=== PATIENT | female | born 1985 | race Caucasian/White ===

== ENCOUNTER 2017-05-15 22:24 | Emergency (ER) | payer MEDICAID ==
[2017-05-15] MEDS ORDERED: Pantoprazole 40 MG Tab.CR PO STA (22:36)
[2017-05-15] MEDS ORDERED: Meclizine 25 MG Tab PO ONE (22:36)
[2017-05-15] MEDS ORDERED: Ondansetron 8 MG Tab.DIS PO ONE (22:36)
[2017-05-16 00:04] VITALS: BP 116/79
--- NOTE | 2017-05-16 00:04 | EDM.PDOC ---
ED HPI GENERAL MEDICAL PROBLEM - General Chief Complaint: Chest Pain Stated Complaint: CHEST PAIN Time Seen by Provider: 05/15/17 22:25 Source of Information: Reports: Patient, Family History Limitations: Reports: No Limitations - History of Present Illness INITIAL COMMENTS - FREE TEXT/NARRATIVE: 32 y.o.w.f with a h/o vertigo came to the ed with her family due to acute onset of dizziness, nausea and epigastric pain after she ate. Pt had difficulty ambulating as she arrived here in the ed due to Dizziness. She had her last vertigo symptoms as a child. No other acute medical issue at [facility] time. 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 - Related Data Allergies Allergy/AdvReac Type Severity Reaction Status Date / Time No Known Allergies Allergy Verified 05/15/17 22:38 Home Meds: Home Meds Meclizine [Antivert] 25 mg PO TID PRN #20 tab.chew 05/16/17 [Rx] Ondansetron [Zofran ODT] 8 mg PO Q6H PRN #10 tab.dis 05/16/17 [Rx] Pantoprazole Sodium [Protonix] 40 mg PO DAILY #10 tab 05/16/17 [Rx] Past Medical History - Past Surgical History Female Surgical History: Reports: Section Social & Family History - Tobacco Use Smoking Status *Q: Never Smoker - Alcohol Use Days Per Week of Alcohol Use: 2 Number of Drinks Per Day: 2 Total Drinks Per Week: 4 - Recreational Drug Use Recreational Drug Use: No ED ROS GENERAL - Review of Systems Review Of Systems: See Below Constitutional: Reports: No Symptoms HEENT: Reports: Vertigo Respiratory: Reports: No Symptoms Cardiovascular: Reports: No Symptoms Endocrine: Reports: No Symptoms GI/Abdominal: Reports: Abdominal Pain (epigastric) : Reports: No Symptoms Musculoskeletal: Reports: No Symptoms Skin: Reports: No Symptoms Neurological: Reports: Dizziness Psychiatric: Reports: No Symptoms Hematologic/Lymphatic: Reports: No Symptoms Immunologic: Reports: No Symptoms ED EXAM, GENERAL - Physical Exam Exam: See Below Exam Limited By: No Limitations General Appearance: Alert, WD/WN, Mild Distress Eye Exam: Left Eye: Nystagmus (left sided ) Ears: Normal External Exam Ear Exam: Bilateral Ear: Auricle Normal Nose: Normal Inspection, Normal Mucosa Throat/Mouth: Normal Inspection Head: Atraumatic Neck: Normal Inspection Respiratory/Chest: No Respiratory Distress, Lungs Clear, Normal Breath Sounds Cardiovascular: Normal Peripheral Pulses, Regular Rate, Rhythm, No Edema Peripheral Pulses: 2+: Femoral (L), Femoral (R) GI/Abdominal: Normal Bowel Sounds, Soft, Tender (epigastric tenderness) (Female) Exam: Deferred Rectal (Female) Exam: Deferred Back Exam: Normal Inspection Extremities: Normal Inspection Neurological: Abnormal Gait (due to dizziness) Psychiatric: Normal Affect, Normal Mood Skin Exam: Warm, Dry, Intact, Normal Color, No Rash Lymphatic: No Adenopathy Course - Vital Signs Text/Narrative:: 32 y.o.w.f with a h/o vertigo came to the ed with her family due to acute onset of dizziness, nausea and epigastric pain after she ate. Pt had difficulty ambulating as she arrived here in the ed due to Dizziness. She had her last vertigo symptoms as a child. No other acute medical issue at thsi time. PE: Nystagmus to the lat left, epigastric pain, nausea, no vomiting. imaging: MRI is not available Impression: Vertigo, gastritis Tx: Antivert, Zofran and Prtonix. Pt was drinking water well. Reexam: Symptoms subsided, pt was ambulating fine before D/C, Nausea and epigastric pain subsided as well. Plan: D/C with instructions. Last Recorded V/S: Last Vital Signs Temp 36.8 C 05/16/17 00:00 Pulse 72 05/16/17 00:00 Resp 16 05/16/17 00:00 BP 116/79 05/16/17 00:00 Pulse Ox 100 05/16/17 00:00 - Orders/Labs/Meds Meds: Medications Discontinued Medications Generic Name Dose Route Start Last Admin Trade Name Baronq PRN Reason Stop Dose Admin Meclizine HCl 50 mg 05/15/17 22:36 05/15/17 22:46 Antivert PO 05/15/17 22:37 50 mg ONETIME ONE Administration Ondansetron HCl 8 mg 05/15/17 22:36 05/15/17 22:46 Zofran Odt PO 05/15/17 22:37 8 mg ONETIME ONE Administration Pantoprazole Sodium 40 mg 05/15/17 22:36 05/15/17 22:46 Protonix PO 05/15/17 22:37 40 mg ONETIME STA Administration Departure - Departure Time of Disposition: 00:00 Disposition: Home, Self-Care 01 Condition: Good Clinical Impression: Vertigo Gastritis Qualifiers: Gastritis type: unspecified gastritis Chronicity: acute Gastritis bleeding: without bleeding Qualified Code(s): K29.00 - Acute gastritis without bleeding Prescriptions: Meclizine [Antivert] 25 mg PO TID PRN #20 tab.chew PRN Reason: vertigo symptoms Ondansetron [Zofran ODT] 8 mg PO Q6H PRN #10 tab.dis PRN Reason: Nausea Pantoprazole Sodium [Protonix] 40 mg PO DAILY #10 tab Instructions: Vertigo Referrals: PCP,None [Primary Care Provider] - Forms: ED Department Discharge Additional Instructions: Please take the meds as recommended, please increase water intake, please f/u with neurology, please come back if your symptoms get worse acutely.
== END 2017-05-16 00:02 | disposition home or self-care (01) ==
LOC: FB.ED 22:24
DX: K29.00 Acute gastritis without bleeding (principal); R42 Dizziness and giddiness; Z98.890 Other specified postprocedural states
CPT/HCPCS: 99283; A9270

== ENCOUNTER 2020-01-06 00:28 | Emergency (ER) | payer MEDICAID ==
[2020-01-06 01:03] VITALS: BP 124/91; PULSE 100
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
== END 2020-01-06 01:25 | disposition home or self-care (01) ==
LOC: FB.ED 00:28
DX: F10.129 Alcohol abuse with intoxication, unspecified (principal); F41.9 Anxiety disorder, unspecified; F32.9 Major depressive disorder, single episode, unspecified; Z79.899 Other long term (current) drug therapy; Z88.2 Allergy status to sulfonamides
CPT/HCPCS: 99284

== ENCOUNTER 2020-02-24 03:41 | Emergency (ER) | payer SELFPAY ==
[2020-02-24] MEDS ORDERED: Sodium Chloride 0.9% 10 ML Syringe FLUSH PRN (03:55)
[2020-02-24] MEDS ORDERED: Sodium Chloride 0.9% 1,000 ML IV SCH (04:00)
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
[2020-02-24 04:33] LABS: ACETAMINOPHEN < 2 ug/mL (<2)
[2020-02-24 04:53] VITALS: BP 130/92; PULSE 122
[2020-02-24] MEDS: Potassium Chloride 20 MEQ Tab.ER PO SCH ×2 (06:02→07:07)
== END 2020-02-24 10:05 ==
LOC: FB.ED 03:41
DX: T42.4X2A Poisoning by benzodiazepines, intentional self-harm, initial encounter (principal); S80.812A Abrasion, left lower leg, initial encounter; S40.812A Abrasion of left upper arm, initial encounter; F10.129 Alcohol abuse with intoxication, unspecified; F41.9 Anxiety disorder, unspecified; F32.9 Major depressive disorder, single episode, unspecified; Z88.2 Allergy status to sulfonamides; Z79.899 Other long term (current) drug therapy; W26.0XXA Contact with knife, initial encounter
CPT/HCPCS: 36415; 80053; 80305-QW; 80307; 81001; 81025; 84132; 84439; 84443; 85025; 93005; 99285-25; A9270-GY

== ENCOUNTER 2020-04-24 01:53 | Emergency (ER) | payer SELFPAY ==
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
[2020-04-24] MEDS: Activated Charcoal/Sorbitol Susp 50 GM/240 ML Bottle ONE ×2 (02:04→02:17)
[2020-04-24] MEDS ORDERED: Activated Charcoal/Sorbitol Susp 50 GM/240 ML Bottle PO ONE (02:05)
[2020-04-24] MEDS ORDERED: Ondansetron 4 MG/2 ML SDV IVPUSH ONE (02:06)
[2020-04-24] MEDS ORDERED: Sodium Chloride 0.9% 10 ML Syringe FLUSH PRN (02:14)
[2020-04-24] MEDS ORDERED: Activated Charcoal/Sorbitol Susp 50 GM/240 ML Bottle ONE (02:16)
[2020-04-24] MEDS ORDERED: Sodium Chloride 0.9% 1,000 ML IV ONE (03:00)
[2020-04-24 03:19] LABS: ACETAMINOPHEN < 2 ug/mL (<2)
[2020-04-24 17:16] VITALS: BP 131/63; PULSE 88
== END 2020-04-24 15:46 ==
LOC: FB.ED 01:53
DX: T43.222A Poisoning by selective serotonin reuptake inhibitors, intentional self-harm, initial encounter (principal); F41.9 Anxiety disorder, unspecified; F32.9 Major depressive disorder, single episode, unspecified; Z88.2 Allergy status to sulfonamides; Z79.899 Other long term (current) drug therapy
CPT/HCPCS: 36415; 80053; 80305; 80307; 85027; 93005; 96374; 99285; J2405; J7030

== ENCOUNTER 2023-05-27 19:19 | Emergency (ER) | payer MEDICAID ==
[2023-05-27] MEDS: Sodium Chloride 0.9% 10 ML Syringe FLUSH PRN ×2 (19:49→21:55)
[2023-05-27] MEDS ORDERED: Ondansetron 4 MG/2 ML SDV IVPUSH ONE (19:49)
[2023-05-27] MEDS ORDERED: Ketorolac 30 MG/ML SDV IVPUSH ONE (19:49)
[2023-05-27] MEDS ORDERED: Morphine 4 MG/ML VIAL IVPUSH ONE (19:49)
[2023-05-27 19:58] LABS: BASOPHILS ABSOLUTE AUTO 0.1 x10-3/uL (0.0-0.1); BASOPHILS PERCENT AUTO 0.5 % (0.2-1.5); EOSINOPHILS ABSOLUTE AUTO 0.1 x10-3/uL (0.0-0.8); EOSINOPHILS PERCENT AUTO 0.6 % (0.6-8.1); LYMPHOCYTES ABSOLUTE AUTO 1.2 x10-3/uL (1.0-4.4); MEAN CORPUSCULAR HEMOGLOBIN 30.4 pg (23.9-33.9); MEAN CORPUSCULAR VOLUME 89.4 fL (76.7-100.5); MEAN PLATELET VOLUME 7.4 fL (7.1-12.4); MONOCYTES ABSOLUTE AUTO 1.1 x10-3/uL (0.3-1.0); MONOCYTES PERCENT AUTO 9.8 % (4.4-15.7); NEUTROPHILS ABSOLUTE AUTO 8.9 x10-3/uL (1.5-6.3); NEUTROPHILS PERCENT AUTO 78.1 % (30.8-76.2); PLATELET COUNT,PLT 297 x10(3)uL (151-488); RED BLOOD CELL COUNT 4.59 x10(6)uL (3.60-5.20); RED CELL DISTRIBUTION WIDTH 13.5 % (12.3-16.5); WHITE BLOOD CELL COUNT,WBC 11.4 x10-3/uL (3.0-10.3)
[2023-05-27] MEDS ORDERED: Sodium Chloride 0.9% 1,000 ML IV SCH (20:00)
[2023-05-27 20:08] LABS: BLOOD UREA NITROGEN,BUN 8 mg/dL (7-18); BUN/CREATININE RATIO 8.9 (9-20); CARBON DIOXIDE,CO2 26 mmol/L (21-32); CHLORIDE,CL 102 mmol/L (100-110); CREATININE 0.9 mg/dL (0.55-1.02); ESTIMATED GFR 84 mL/min (>60); GLUCOSE RANDOM 107 mg/dL (80-116); POTASSIUM,K 3.5 mmol/L (3.5-5.3); SODIUM,NA 139 mmol/L (135-145)
[2023-05-27 20:20] LABS: ALBUMIN 4.1 g/dL (3.5-5.2); ALKALINE PHOSPHATASE 111 IU/L (56-112); AMYLASE 56 U/L (25-115); BILIRUBIN TOTAL 2.4 mg/dL (0.1-1.3); PROTEIN TOTAL,TP 8.1 g/dL (6.0-8.0)
[2023-05-27 20:23] LABS: ALANINE AMINOTRANSFERASE,ALT 330 U/L (12-36)
[2023-05-27 20:24] LABS: ASPARTATE AMNIOTRANSFERASE,AST 527 IU/L (5-25)
[2023-05-27] MEDS ORDERED: Iopamidol 755 Mg/ML 100 ML Bottle IV SCH (21:00)
[2023-05-27 21:19] LABS: BILIRUBIN,URINE SMALL (NEGATIVE); GLUCOSE,URINE NORMAL (NORMAL); KETONES,URINE NEGATIVE (NEGATIVE); LEUKOCYTE ESTERASE,URINE NEGATIVE (NEGATIVE); NITRITE,URINE NEGATIVE (NEGATIVE); OCCULT BLOOD,URINE NEGATIVE (NEGATIVE); PROTEIN,URINE NEGATIVE (NEGATIVE); UROBILINOGEN,URINE 4 mg/dL (NEGATIVE)
[2023-05-27 21:20] LABS: APPEARANCE,URINE CLEAR (CLEAR); BACTERIA,URINE FEW (NS); CALCIUM OXALATE CRYSTALS,URINE OCCASIONAL (NS); COLOR,URINE YELLOW (YELLOW); RBC,URINE 0-5 (0-5); SQUAMOUS EPITHELIAL CELLS,UR FEW (NS,R,O); WBC,URINE 0-5 (0-5)
[2023-05-27 21:21] LABS: AMPHETAMINES SCREEN, URINE NEGATIVE (NEGATIVE); BENZODIAZEPINES SCREEN,URINE POSITIVE (NEGATIVE); METHAMPHETAMINE SCREEN, URINE NEGATIVE (NEGATIVE); THC SCREEN,URINE NEGATIVE (NEGATIVE)
[2023-05-27 21:22] LABS: BARBITURATE SCREEN,URINE NEGATIVE (NEGATIVE); BUPRENORPHINE SCREEN,URINE NEGATIVE (NEGATIVE); METHADONE SCREEN, URINE NEGATIVE (NEGATIVE); OXYCODONE SCREEN,URINE NEGATIVE (NEGATIVE); PROPOXYPHENE SCREEN,URINE NEGATIVE (NEGATIVE)
[2023-05-27] MEDS ORDERED: Piperacillin/Tazobactam 4.5 GM in Sodium Chloride 0.9% 100 ML IV STA (21:46)
[2023-05-27 22:40] LABS: LACTIC ACID 0.6 mmol/L (0.4-2.0)
[2023-05-28 00:24] VITALS: BP 129/82; PULSE 76
== END 2023-05-27 23:47 ==
LOC: FB.ED 19:19
DX: K80.40 Calculus of bile duct with cholecystitis, unspecified, without obstruction (principal); Z88.2 Allergy status to sulfonamides; Z79.899 Other long term (current) drug therapy; Z20.822 Contact with and (suspected) exposure to COVID-19
CPT/HCPCS: 36415; 74177; 80053; 80307; 81001; 82150; 83605; 83690; 85025; 87040; 96361; 96365; 96375; 99285; 99285-25; J1885; J2270; J2405; J2543; J3490; J7030; Q9967; U0002

== ENCOUNTER 2023-10-20 03:59 | Emergency (ER) | payer MEDICAID ==
[2023-10-20] MEDS ORDERED: Morphine 4 MG/ML VIAL IVPUSH ONE (04:09)
[2023-10-20] MEDS ORDERED: Ondansetron 4 MG/2 ML SDV IVPUSH ONE (04:10)
[2023-10-20] MEDS ORDERED: Sodium Chloride 0.9% 1,000 ML IV ONE (04:10)
[2023-10-20 04:32] LABS: BLOOD UREA NITROGEN,BUN 14 mg/dL (7-18); BUN/CREATININE RATIO 17.5 (9-20); CALCIUM 9.6 mg/dL (8.6-10.2); CARBON DIOXIDE,CO2 31 mmol/L (21-32); CHLORIDE,CL 106 mmol/L (100-110); CREATININE 0.8 mg/dL (0.55-1.02); ESTIMATED GFR 97 mL/min (>60); GLUCOSE RANDOM 98 mg/dL (80-116); POTASSIUM,K 3.4 mmol/L (3.5-5.3); SODIUM,NA 142 mmol/L (135-145)
[2023-10-20] MEDS ORDERED: Iopamidol 755 Mg/ML 100 ML Bottle IV ONE (04:35)
[2023-10-20 04:38] LABS: ALANINE AMINOTRANSFERASE,ALT 26 U/L (12-36); ALBUMIN 3.9 g/dL (3.5-5.2); ALKALINE PHOSPHATASE 96 IU/L (56-112); AMYLASE 69 U/L (25-115); ASPARTATE AMNIOTRANSFERASE,AST 18 IU/L (5-25); BASOPHILS ABSOLUTE AUTO 0.1 x10-3/uL (0.0-0.1); BASOPHILS PERCENT AUTO 0.9 % (0.2-1.5); BILIRUBIN TOTAL 0.3 mg/dL (0.1-1.3); EOSINOPHILS ABSOLUTE AUTO 0.2 x10-3/uL (0.0-0.8); EOSINOPHILS PERCENT AUTO 1.8 % (0.6-8.1); HEMATOCRIT 41.6 % (34.2-48.2); LYMPHOCYTES ABSOLUTE AUTO 3.3 x10-3/uL (1.0-4.4); LYMPHOCYTES PERCENT AUTO 30.2 % (18.4-52.1); MEAN CORPUSCULAR HEMOGLOBIN 30.8 pg (23.9-33.9); MEAN CORPUSCULAR HGB CONC 33.7 g/dL (31.9-34.8); MEAN CORPUSCULAR VOLUME 91.4 fL (76.7-100.5); MEAN PLATELET VOLUME 6.9 fL (7.1-12.4); MONOCYTES ABSOLUTE AUTO 1.2 x10-3/uL (0.3-1.0); MONOCYTES PERCENT AUTO 10.7 % (4.4-15.7); NEUTROPHILS ABSOLUTE AUTO 6.2 x10-3/uL (1.5-6.3); NEUTROPHILS PERCENT AUTO 56.4 % (30.8-76.2); PLATELET COUNT,PLT 332 x10(3)uL (151-488); PROTEIN TOTAL,TP 7.9 g/dL (6.0-8.0); RED BLOOD CELL COUNT 4.55 x10(6)uL (3.60-5.20); RED CELL DISTRIBUTION WIDTH 13.8 % (12.3-16.5)
[2023-10-20 04:46] LABS: BILIRUBIN,URINE NEGATIVE (NEGATIVE); GLUCOSE,URINE NORMAL (NORMAL); KETONES,URINE NEGATIVE (NEGATIVE); LEUKOCYTE ESTERASE,URINE NEGATIVE (NEGATIVE); NITRITE,URINE NEGATIVE (NEGATIVE); OCCULT BLOOD,URINE NEGATIVE (NEGATIVE); PH,URINE 6.5 (5.0-6.5); PROTEIN,URINE NEGATIVE (NEGATIVE); UROBILINOGEN,URINE NORMAL (NEGATIVE)
[2023-10-20 04:48] LABS: APPEARANCE,URINE CLEAR (CLEAR); BACTERIA,URINE OCCASIONAL (NS); COLOR,URINE YELLOW (YELLOW); RBC,URINE 0-5 (0-5); SQUAMOUS EPITHELIAL CELLS,UR OCCASIONAL (NS,R,O); WBC,URINE 0-5 (0-5)
[2023-10-20 05:11] LABS: AMPHETAMINES SCREEN, URINE NEGATIVE (NEGATIVE); BARBITURATE SCREEN,URINE NEGATIVE (NEGATIVE); BENZODIAZEPINES SCREEN,URINE NEGATIVE (NEGATIVE); BUPRENORPHINE SCREEN,URINE NEGATIVE (NEGATIVE); METHADONE SCREEN, URINE NEGATIVE (NEGATIVE); METHAMPHETAMINE SCREEN, URINE NEGATIVE (NEGATIVE); OXYCODONE SCREEN,URINE NEGATIVE (NEGATIVE); THC SCREEN,URINE NEGATIVE (NEGATIVE)
[2023-10-20] MEDS ORDERED: Prochlorperazine 10 MG in Sodium Chloride 0.9% 50 ML IV ONE (06:15)
[2023-10-20] MEDS ORDERED: Alum Hydroxide/Mag Hydroxide 15 ML, Lidocaine 2% 15 ML PO ONE ×2 (06:16)
[2023-10-20] MEDS ORDERED: Prochlorperazine 10 MG/2 ML SDV ONE (06:17)
[2023-10-20] MEDS ORDERED: Prochlorperazine 10 MG/2 ML SDV IVPUSH ONE (06:25)
[2023-10-20] MEDS ORDERED: Ketorolac 30 MG/ML SDV IVPUSH ONE (06:34)
[2023-10-20 07:00] VITALS: BP 121/67; PULSE 98
== END 2023-10-20 07:02 | disposition home or self-care (01) ==
LOC: FB.ED 03:59
DX: N83.209 Unspecified ovarian cyst, unspecified side (principal); F10.120 Alcohol abuse with intoxication, uncomplicated; Z86.16 Personal history of COVID-19; Z90.710 Acquired absence of both cervix and uterus; Z88.0 Allergy status to penicillin
CPT/HCPCS: 36415; 74177; 80053; 80307; 81001; 82150; 83690; 85025; 96361; 96374; 96375; 99284; A9270; J0780; J1885; J2270; J2405; J7030; Q9967

== ENCOUNTER 2024-04-23 15:50 | Emergency (ER) | payer MEDICAID ==
[2024-04-23] MEDS: Ondansetron 4 MG/2 ML SDV IM ONE (16:48)
[2024-04-23] MEDS: diphenhydrAMINE 50 MG/ML SDV IM ONE (16:48)
[2024-04-23] MEDS: Ketorolac 30 MG/ML SDV IM ONE (16:48)
[2024-04-23 18:57] VITALS: BP 139/88; PULSE 91
== END 2024-04-23 17:03 | disposition home or self-care (01) ==
LOC: FB.ED 15:50
DX: G43.909 Migraine, unspecified, not intractable, without status migrainosus (principal); Z88.2 Allergy status to sulfonamides; Z79.899 Other long term (current) drug therapy; Z86.16 Personal history of COVID-19; Z90.49 Acquired absence of other specified parts of digestive tract; Z90.710 Acquired absence of both cervix and uterus
CPT/HCPCS: 96372; 99283; J1200; J1885; J2405

== ENCOUNTER 2024-05-20 19:00 | Emergency (ER) | payer MEDICAID ==
[2024-05-20] MEDS: diphenhydrAMINE 50 MG/ML SDV IM ONE (20:13)
[2024-05-20] MEDS: Ketorolac 30 MG/ML SDV IM ONE (20:13)
[2024-05-20] MEDS: Ondansetron 4 MG Tab.DIS PO ONE (20:14)
[2024-05-20 22:04] VITALS: BP 135/76; PULSE 85
== END 2024-05-20 21:35 | disposition home or self-care (01) ==
LOC: FB.ED 19:00
DX: G43.109 Migraine with aura, not intractable, without status migrainosus (principal); Z86.16 Personal history of COVID-19; Z90.49 Acquired absence of other specified parts of digestive tract; Z90.710 Acquired absence of both cervix and uterus; Z79.899 Other long term (current) drug therapy; Z88.2 Allergy status to sulfonamides
CPT/HCPCS: 96372; 99283; J1200; J1885; Q0162

== ENCOUNTER 2024-06-17 17:21 | Emergency (ER) | payer MEDICAID ==
[2024-06-17] MEDS: Ondansetron 4 MG Tab.DIS PO ONE (18:55)
[2024-06-17] MEDS: diphenhydrAMINE 50 MG/ML SDV IM ONE (18:55)
[2024-06-17] MEDS: Ketorolac 30 MG/ML SDV IM ONE (18:55)
[2024-06-17 19:21] VITALS: BP 104/78; PULSE 76
== END 2024-06-17 19:00 | disposition home or self-care (01) ==
LOC: FB.ED 17:21
DX: G43.911 Migraine, unspecified, intractable, with status migrainosus (principal); Z86.16 Personal history of COVID-19; Z88.2 Allergy status to sulfonamides; Z79.899 Other long term (current) drug therapy; Z90.49 Acquired absence of other specified parts of digestive tract; Z90.710 Acquired absence of both cervix and uterus
CPT/HCPCS: 96372; 99283; J1200; J1885; Q0162

== ENCOUNTER 2025-09-03 22:54 | Emergency (ER) | payer SELFPAY ==
[2025-09-03] MEDS ORDERED: Sodium Chloride 0.9% 10 ML Syringe FLUSH PRN (23:26)
[2025-09-03] MEDS: diphenhydrAMINE 50 MG/ML SDV IVPUSH ONE (23:43)
[2025-09-03] MEDS: Ketorolac 30 MG/ML SDV IVPUSH ONE (23:44)
[2025-09-03] MEDS: Dexamethasone 4 MG/ML 5 ML MDV IVPUSH ONE (23:47)
[2025-09-03] MEDS: Prochlorperazine 10 MG/2 ML SDV IVPUSH ONE (23:49)
[2025-09-04 00:23] VITALS: BP 117/71; PULSE 67
== END 2025-09-04 00:23 | disposition home or self-care (01) ==
LOC: FB.ED 22:54
DX: G43.911 Migraine, unspecified, intractable, with status migrainosus (principal); E86.0 Dehydration; Z90.49 Acquired absence of other specified parts of digestive tract; Z90.710 Acquired absence of both cervix and uterus; Z88.2 Allergy status to sulfonamides; Z79.899 Other long term (current) drug therapy
CPT/HCPCS: 96374; 96375; 99283-25; J0780; J1100; J1200; J1885; J7030